=== PATIENT | female | born 1950 | race Caucasian/White ===

== ENCOUNTER 2017-10-21 20:43 | Emergency (ER) | payer MEDICARE, OTHER ==
[~2017-10-21] VITALS: Ht 165.1 cm; Wt 84.8 kg
[2017-10-21] MEDS ORDERED: ULTRAM PO STA (20:57)
[2017-10-21] MEDS ORDERED: ULTRAM ONE (20:59)
[2017-10-21] MEDS ORDERED: ZOFRAN ODT SL STA ×2 (21:03→21:07)
[2017-10-21] MEDS ORDERED: ZOFRAN ODT ONE (21:03)
--- NOTE | 2017-10-21 21:03 | ER.PDOC ---
General Chief Complaint: Extremities Stated Complaint: R SHOULDER PAIN Time seen by MD: 20:54 Source: patient, family Exam Limitations: no limitations History of Present Illness Initial Comments Reaching overhead. Bland pop, pain L shoulder. Occurred: just prior to arrival Recent Injury: Yes Where: home Severity: moderate Exacerbated By: movement of Relieved By: postioning Allergies: Coded Allergies: azithromycin (Verified Allergy, Unknown, 10/21/17) Past Medical History Medical History: cardiac problems, high cholesterol, heart attack, hypertension Surgical History: hysterectomy, shoulder LMP (females 10-50): hysterectomy Social History Smoking: non-smoker Alcohol Use: occassionally Drug Use: none Review of Systems Constitutional: no symptoms reported Musculoskeletal: see HPI All Other Systems: Reviewed and Negative Physical Exam General Appearance: alert, moderate distress Upper Extremity: tenderness (ant R shoulder. Pain with any attempt at ROM.) Skin: color nml, warm/dry Vascular: no vascular compromise Neuro/Psych: sensation nml, motor nml Neck/Back: nml inspection Joint Reduction Joint Reduction : Joint Reduction Site: shoulder (R) Conscious Sedation: Yes Reduction Attempts: 1 Pre-Procedure NV Exam: Yes Post-Procedure NV Exam: Yes Post Joint Reduction Film: joint reduced Progress Yuliana well. Placed in shoulder immob. Results/Orders Results/Orders Administered Medications Medications (Trade) Dose Ordered Sig/Flavia Route PRN Reason Start Time Stop Time Status Last Admin Dose Admin Tramadol HCl (Ultram) 50 mg STAT STAT PO 10/21/17 20:57 10/21/17 20:59 DC 10/21/17 21:05 Ondansetron HCl (Zofran Odt) 4 mg STAT STAT SL 10/21/17 21:07 10/21/17 21:08 DC 10/21/17 21:08 Fentanyl Citrate (Sublimaze) 50 mcg STAT STAT IV 10/21/17 21:45 10/21/17 21:47 DC 10/21/17 22:04 Midazolam HCl (Versed) 2 mg STAT STAT IV 10/21/17 21:45 10/21/17 21:47 DC 10/21/17 22:05 EKG/XRAY/CT/US XRAY Comments: Shoulder R ant disloc, no fx. Post reduction, degen changes, good reductio Departure Time of Disposition: 22:40 Disposition: 01 HOME, SELF-CARE Impression: Primary Impression: Anterior dislocation of right shoulder Condition: Improved Patient Instructions: Shoulder Dislocation Referrals: MAGUI BALLARD MD (PCP) PRIMARY CARE PROVIDER Additional Instructions: Ice. Sling as needed. See your doctor next week for recheck. Duration or Time Spent with Pa: 40 ROCHELLE DUKE DO Oct 21, 2017 21:03
[2017-10-21] MEDS ORDERED: VERSED IV STA (21:45)
[2017-10-21] MEDS ORDERED: SUBLIMAZE IV STA (21:45)
[2017-10-21] MEDS ORDERED: VERSED ONE (21:54)
[2017-10-21] MEDS ORDERED: SUBLIMAZE ONE (21:54)
--- NOTE | 2017-10-21 21:56 | DIREP ---
PROCEDURE:XRAY SHOULDER MIN 2 VWS-RT COMPARISON:None. INDICATIONS:injury FINDINGS: BONES:No visible fracture. JOINTS:Anterior/inferior right shoulder dislocation. No acromioclavicular separation. Mild acromioclavicular arthrosis. SOFT TISSUES:Unremarkable. OTHER:Visualized portions of the right lung are clear. Bra artifact overlies the chest and right shoulder. Calcified plaque is noted in the aortic arch. CONCLUSION: 1. Anterior/inferior right shoulder dislocation. No visible fracture. 2. Mild acromioclavicular arthrosis. Dictated by: Akira Cesar MD on 10/21/2017 at 09:54 PM
--- NOTE | 2017-10-21 22:02 | NUR ---
PROCEDURE JANETTE, YASMEEN PHAN, RN THEO, KATIE DUKE AT BEDSIDE FOR RIGHT SHOULDER REDUCTION, PLEASE SEE CONSCIOUS SEDATION FORM.
--- NOTE | 2017-10-21 22:40 | DIREP ---
PROCEDURE:XRAY SHOULDER 1 VW-RT COMPARISON:[facility], CR, XRAY SHOULDER MIN 2 VWS-RT, 10/21/2017, 08:55 PM. INDICATIONS:post red FINDINGS: BONES:No visible fracture. The examination is limited to a single view. JOINTS:Interval reduction of the previously seen right glenohumeral dislocation. The humeral head is now well seated upon the glenoid. Stable mild acromioclavicular arthrosis. SOFT TISSUES:Unremarkable. OTHER:Mild right basilar subsegmental atelectasis. Visualized portions the right lung are otherwise clear. Stable calcified plaque at the aortic knob. CONCLUSION: 1. Interval reduction of the previously seen right glenohumeral dislocation. The humeral head is well seated upon the glenoid. No visible fracture. 2. Stable mild acromioclavicular arthrosis. Dictated by: Akira Cesar MD on 10/21/2017 at 10:36 PM
--- NOTE | 2017-10-21 23:17 | NUR ---
BP BP 186/91, EDP NOTIFIED, STATES TO DISCHARGE PATIENT. DOESN'T WANT TO GIVEN ANYTHING BECAUSE EDP IS AFRAID THE MEDICATION WILL DROP BP TOO LOW.
[2017-10-21 23:18] VITALS: BP 183/91
--- NOTE | 2017-10-21 23:19 | NUR ---
IV DC'D TIP INTACT, NO BLEEDING
--- NOTE | 2017-10-21 23:30 | NUR ---
DISCHARGE PATIENT CA0X4 UPON DISCHARGE, PATIENT STATES HER PAIN IS 1/10 AND FEELS MUCH BETTER. PATIENT WHEELED OUT TO VEHICLE.
== END 2017-10-21 23:30 | disposition home or self-care (01) ==
LOC: ER 20:43
DX: S43.014A Anterior dislocation of right humerus, initial encounter (principal); I10 Essential (primary) hypertension; I25.2 Old myocardial infarction; E78.00 Pure hypercholesterolemia, unspecified; Z90.710 Acquired absence of both cervix and uterus; Z88.1 Allergy status to other antibiotic agents; X58.XXXA Exposure to other specified factors, initial encounter; Y93.89 Activity, other specified; Y92.098 Other place in other non-institutional residence as the place of occurrence of the external cause; Y99.8 Other external cause status
CPT/HCPCS: 23650; 73020; 73030; 99285; J2250; J3010; Q0162; 96374; 96375; 99284

== ENCOUNTER → 2018-03-09 | Outpatient (CLI) | payer MEDICARE, OTHER ==
--- NOTE | 2018-03-09 11:09 | DIREP ---
PROCEDURE:XRAY HIP MIN 2VW-LT COMPARISON:None. INDICATIONS:M25.552 PAIN IN LEFT HIP FINDINGS: BONES:Normal. JOINTS:Normal. SOFT TISSUES:Normal. OTHER:No additional findings. CONCLUSION:Normal left hip. Dictated by: Kody Lovell M.D. on 03/09/2018 at 11:07 AM
--- NOTE | 2018-03-09 11:11 | DIREP ---
PROCEDURE:XRAY SPINE LUMBAR 2-3 VWS COMPARISON:None. INDICATIONS:M54.5 LOW BACK PAIN FINDINGS: ALIGNMENT:Normal. VERTEBRAE:No fractures or destructive lesions. Minimal osteophyte formation anteriorly from L1 through L4. DISK SPACES:Normal. SPONDYLOLISTHESIS:None. SACROILIAC JOINTS:Normal. OTHER:Moderate arterial calcifications. CONCLUSION: 1. No abnormalities to explain the patient's back pain. 2. Atherosclerosis. Dictated by: Kody Lovell M.D. on 03/09/2018 at 11:09 AM
== END | disposition home or self-care (01) ==
LOC: RAD 09:26
PROVIDERS: ATTEND Internal Medicine
DX: M25.552 Pain in left hip (principal); M25.78 Osteophyte, vertebrae; I70.90 Unspecified atherosclerosis
CPT/HCPCS: 72100; 73502

== ENCOUNTER → 2018-07-26 | Outpatient (CLI) | payer MEDICARE, OTHER ==
[~2018-07-26] MED LIST: ASPI-667 PO; CITA20TA6 PO; CLOP75TA PO; ISOS30TA4 PO; LOSA100T14 PO; METO50TA6 PO; MULT1TAB52 PO; NIAC500C3 PO; POTA10CA PO; PRAV80TA PO; TRIA1TAB5 PO; VERA240C2 PO
== END | disposition home or self-care (01) ==
LOC: LAB 13:12
PROVIDERS: ATTEND Nurse Practitioner
DX: R35.0 Frequency of micturition (principal)
CPT/HCPCS: 87086

== ENCOUNTER → 2018-07-26 | Outpatient (CLI) | payer MEDICARE, OTHER ==
[2018-07-26 11:57] LABS: BASOPHIL % 0.3 % (0.0-0.2); EOSINOPHIL # 0.2 10^3/uL (0.0-0.2); EOSINOPHIL % 1.8 % (0.0-5.0); HEMOGLOBIN 13.1 g/dL (12.0-15.0); LYMPHOCYTES # 1.1 10^3/uL (1.0-4.8); LYMPHOCYTES % 9.2 % (24.0-44.0); MEAN CELL HGB 29.9 pg (26-34); MEAN CELL HGB CONCENTRATION 33.3 g/dL (33-37); MEAN CORP VOLUME 89.7 fL (78-100); MEAN PLATELET VOLUME 9.7 fL (7.8-11.0); MONOCYTES % 8.4 % (5.0-12.0); NEUTROPHIL # 9.4 10^3/uL (1.8-7.7); NEUTROPHILS % 78.9 % (41.0-85.0); PLATELET COUNT 340 10^3/uL (150-400); RED CELL DISTRIBUTION WIDTH 13.6 % (11.5-14.5); WHITE BLOOD CELL 11.9 10^3/uL (4.5-11.0)
[2018-07-26 12:16] LABS: CALCIUM 10.1 mg/dL (8.4-10.5); CARBON DIOXIDE 23.4 mmol/L (20.0-32)
[2018-07-26 13:50] LABS: BAND NEUTROPHILS 1 % (2-6); EOSINOPHIL 2 % (1-4); LYMPHOCYTE 11 % (25-36); MONOCYTE 10 % (3-9); SEGMENTED NEUTROPHILS 74 % (31-76)
== END | disposition home or self-care (01) ==
LOC: LAB 11:34
PROVIDERS: ATTEND Nurse Practitioner
DX: M79.81 Nontraumatic hematoma of soft tissue (principal); N17.9 Acute kidney failure, unspecified; R35.0 Frequency of micturition; I10 Essential (primary) hypertension; E78.00 Pure hypercholesterolemia, unspecified; M81.0 Age-related osteoporosis without current pathological fracture
CPT/HCPCS: 36415; 80053; 85025; 85610; 85730

== ENCOUNTER 2018-07-27 14:44 | Emergency (ER) | payer MEDICARE, OTHER ==
[~2018-07-27] VITALS: Ht 165.1 cm; Wt 85.7 kg
[2018-07-27 15:15] VITALS: BP 148/59
--- NOTE | 2018-07-27 15:15 | NUR ---
ARRIVAL PATIENT ARRIVED TO [facility] AMBULATORY, WAS SENT BY DOCTOR LAZARO FOR ELEVEATED CREATININE. PATIENT WAS SEEN YESTERDAY IN HIS OFFICE FOR NINFA, LABS WERE DONE, TODAY WAS SENT TO THE ED FOR FURTHER EVAL.
[2018-07-27] MEDS ORDERED: NS 1000ML 1,000 ML IV STA ×2 (15:23→18:08)
--- NOTE | 2018-07-27 15:23 | ER.PDOC ---
General Chief Complaint: General Complaint Stated Complaint: KIDNEY FAILURE TRAVEL OUT OF US: No Time seen by MD: 15:20 Source: patient Exam Limitations: no limitations History of Present Illness Initial Comments 68 Y/O F WITH HX TO ED WITH HX X 1 WEEK AGO HAD STOMACH BUG, WITH N/V/D, NOW BETTER, BUT SAW PCP TODAY NOTED CREAT WAS 5.45 PATIENT NOW HAS NO SYMPTOMS EXCEPT FREQUENCY WITH URINATION AND "MILD FATIGUE". NO CHEST PAIN, NO SOB, NO FEVER, NO EXT EDEMA. Severity: mild Allergies: Coded Allergies: azithromycin (Verified Allergy, Unknown, 10/21/17) Past Medical History Medical History: cardiac problems, high cholesterol, hypertension Surgical History: cardiac cath, hysterectomy, shoulder, tonsillectomy, other Social History Smoking: non-smoker Alcohol Use: none Drug Use: none Review of Systems Constitutional: no symptoms reported EENTM: no symptoms reported Respiratory: no symptoms reported Cardiovascular: no symptoms reported Gastrointestinal: no symptoms reported Genitourinary: dysuria, frequency Musculoskeletal: no symptoms reported Skin: no symptoms reported Psychiatric/Neurological: no symptoms reported Hematologic/Lymphatic: no symptoms reported Immunological/Allergic: no symptoms reported Physical Exam General Appearance: No Apparent Distress, WD/WN EENT: eyes nml inspection, nml ENT inspection, pharynx nml Neck: Non-Tender, Full Range of Motion, Supple Respiratory: chest non-tender, normal breath sounds CVS: reg rate & rhythm, no murmur, no gallop, pulses nml Gastrointestinal: Normal Bowel Sounds, No Organomegaly, No Pulsatile Mass, Non Tender Back: Normal Inspection, No CVA Tenderness, No Vertebral Tenderness Extremities: Normal Range of Motion, Non-Tender, Normal Inspection, No Pedal Edema Neurologic/Psychiatric: contact lens manufacturer II-XII NML as Tested, No Motor/Sensory Deficits, Alert, Normal Mood/Affect, Oriented x 3 Skin: Normal Color, Warm/Dry Lymphatic: No Adenopathy Comments PATIENT PLEASANT , IN NO DISTRESS. Results/Orders Results/Orders Orders - PEREZ GONSALVES DO Cbc With Auto Diff (07/27/18 15:23) Comprehensive Metabolic Panel (07/27/18 15:23) Creatine Kinase (07/27/18 15:23) Ekg-Routine (07/27/18 15:23) Saline Lock (07/27/18 15:23) 0.9 % Sodium Chloride (Ns 1000ml) (07/27/18 15:23) Urinalysis (07/27/18 15:23) 0.9 % Sodium Chloride (Ns 1000ml) (07/27/18 15:26) Urine Culture (07/27/18 15:49) Ceftriaxone Sodium (Rocephin) (07/27/18 18:08) 0.9 % Sodium Chloride (Ns 1000ml) (07/27/18 18:08) Vital Signs Date Time Temp Pulse Resp B/P (MAP) Pulse Ox O2 Delivery O2 Flow Rate FiO2 07/27/18 18:34 97.7 89 18 148/77 (100) 97 Room Air 97.7 07/27/18 15:15 97.7 89 18 148/59 (88) 97 Room Air 97.7 07/27/18 15:12 97.7 89 18 97 Room Air 97.7 07/27/18 15:10 97.7 89 18 97.7 Administered Medications Medications (Trade) Dose Ordered Sig/Flavia Route PRN Reason Start Time Stop Time Status Last Admin Dose Admin Sodium Chloride 1,000 ml @ 0 mls/hr Q0M STAT IV 07/27/18 15:23 07/27/18 15:26 DC 07/27/18 15:59 1,200 MLS/HR Laboratory Tests Test 07/27/18 15:49 07/27/18 17:22 Urine Collection Type VOID Urine Color YELLOW (YELLOW) Urine Appearance CLOUDY (CLEAR) H Urine Bilirubin NEGATIVE MG/DL (NEGATIVE) Urine Ketones NEGATIVE (NEGATIVE) Urine Specific [place] 1.010 (1.005-1.035) Urine pH 6.5 (5.0-6.0) Urine Protein NEGATIVE (NEGATIVE) Urine Urobilinogen NORMAL (NEGATIVE) Urine Nitrate NEGATIVE (NEGATIVE) Urine Leukocyte Esterase 500/uL 2+ (NEGATIVE) Urine Blood 25 1+ (NEGATIVE) H Urine RBC 2-5 RBC/HPF (NONE SEEN) Urine WBC TNTC WBC/HPF (0-2) H Urine Squamous Epithelial Cells FEW #/HPF (FEW) Urine Bacteria MANY (NONE SEEN) H Urine Glucose NORMAL (NEGATIVE) White Blood Count 11.4 10^3/uL (4.5-11.0) H Red Blood Count 4.17 10^6/uL (4.00-5.20) Hemoglobin 12.6 g/dL (12.0-15.0) Hematocrit 37.3 % (36.0-46.0) Mean Corpuscular Volume 89.4 fL (78-100) Mean Corpuscular Hemoglobin 30.2 pg (26-34) Mean Corpuscular Hemoglobin Concent 33.8 g/dL (33-37) Red Cell Distribution Width 13.6 % (11.5-14.5) Platelet Count 332 10^3/uL (150-400) Mean Platelet Volume 9.2 fL (7.8-11.0) Neutrophils (%) (Auto) 77.7 % (41.0-85.0) Lymphocytes (%) (Auto) 10.1 % (24.0-44.0) L Monocytes (%) (Auto) 8.2 % (5.0-12.0) Neutrophils # (Auto) 8.9 10^3/uL (1.8-7.7) H Lymphocytes # (Auto) 1.2 10^3/uL (1.0-4.8) Monocytes # (Auto) 0.9 10^3/uL (0.3-0.8) H Absolute Immature Granulocyte (auto 0.16 10^3 u/L (0-2) Eosinophils % 2.3 % (0.0-5.0) Basophils % 0.3 % (0.0-0.2) H Basophils # 0.0 10^3/uL (0.0-0.1) Eosinophil Count 0.3 10^3/uL (0.0-0.2) H Sodium Level 134 mmol/L (132-145) Potassium Level 5.4 mmol/L (3.6-5.2) H Chloride Level 102.0 mmol/L (96-109) Carbon Dioxide Level 19.9 mmol/L (20.0-32) L Anion Gap 17.5 Blood Urea Nitrogen 47 mg/dL (7-18) H Creatinine 4.63 mg/dL (0.59-1.40) *H Estimated GFR () 11.3 (>/=60) BUN/Creatinine Ratio 10.0 Glucose Level 94 mg/dL (70-110) Calcium Level 9.4 mg/dL (8.4-10.5) Total Bilirubin 0.6 mg/dL (0.2-1.0) Aspartate Amino Transferase (AST) 23 U/L (0-35) Alanine Aminotransferase (ALT) 39 U/L (12-78) Alkaline Phosphatase 121 U/L (50-136) Total Creatine Kinase 35 U/L (26-192) Total Protein 7.5 g/dL (6.4-8.2) Albumin 3.4 g/dL (3.4-5.0) Globulin 4.1 Percent Immature Gran (Cell Imm) 1.40 % (0.00-0.50) H Progress Progress DIFF DX IN DETAIL WITH PATIENT, WILL TRANSFER TO [facility] AT PATIENTS REQUEST. EKG/XRAY/CT/US EKG: NSR EKG Comments: EKG NSR RATE-78 , NL EKG Consult/PCP Time Consult/PCP Called: 18:30 Consult/PCP: DR MORALES Reason/Comments: SEND TO [facility] Departure Time of Disposition: 18:52 Disposition: 70 DISC/XFER TO [facility] Impression: Primary Impression: Renal insufficiency Additional Impressions: UTI (urinary tract infection) Hyperkalemia HTN (hypertension) Condition: Stable Referrals: BOZENA LAZARO MD (PCP) PRIMARY CARE PROVIDER Duration or Time Spent with Pa: 30 MIN PEREZ GONSALVES DO July 27, 2018 15:23
[2018-07-27] MEDS ORDERED: NS 1000ML 1,000 ML ONE ×2 (15:26→19:58)
--- NOTE | 2018-07-27 15:52 | PCM.EKG ---
[facility] Test Date: 2018-07-27 Test Time: 15:52:15 Pat Name: DARRIUS TORRES Department: Room: Gender: F Flame Hardener: : 1950 Requested By: PEREZ GONSALVES Order Number: [id number] Reading MD: Measurements Intervals [place] Rate: 78 P: 75 ME: 160 QRS: 69 QRSD: 94 T: 109 QT: 406 QTc: 462 Interpretive Statements Normal sinus rhythm Normal ECG No previous ECG available for comparison Please click the below link to view image of tracing.
[2018-07-27 15:58] LABS: BILIRUBIN,URINE NEGATIVE (NEGATIVE); UROBILINOGEN,URINE NORMAL (NEGATIVE)
[2018-07-27 16:13] LABS: APPEARANCE,URINE CLOUDY (CLEAR); UA COLOR YELLOW (YELLOW)
[2018-07-27 17:27] LABS: BASOPHIL % 0.3 % (0.0-0.2); EOSINOPHIL # 0.3 10^3/uL (0.0-0.2); EOSINOPHIL % 2.3 % (0.0-5.0); HEMOGLOBIN 12.6 g/dL (12.0-15.0); LYMPHOCYTES # 1.2 10^3/uL (1.0-4.8); LYMPHOCYTES % 10.1 % (24.0-44.0); MEAN CELL HGB 30.2 pg (26-34); MEAN CELL HGB CONCENTRATION 33.8 g/dL (33-37); MEAN CORP VOLUME 89.4 fL (78-100); MEAN PLATELET VOLUME 9.2 fL (7.8-11.0); MONOCYTES # 0.9 10^3/uL (0.3-0.8); MONOCYTES % 8.2 % (5.0-12.0); NEUTROPHIL # 8.9 10^3/uL (1.8-7.7); NEUTROPHILS % 77.7 % (41.0-85.0); RED CELL DISTRIBUTION WIDTH 13.6 % (11.5-14.5); WHITE BLOOD CELL 11.4 10^3/uL (4.5-11.0)
[2018-07-27 17:47] LABS: CALCIUM 9.4 mg/dL (8.4-10.5); CARBON DIOXIDE 19.9 mmol/L (20.0-32)
[2018-07-27] MEDS ORDERED: ROCEPHIN 1,000 MG in NS 100ML 100 ML IV STA (18:08)
[2018-07-27 18:34] VITALS: BP 148/77
--- NOTE | 2018-07-27 18:34 | NUR ---
ANDREW GONSALVES ON THE PHONE PORTILLO MORALES AT THIS TIME.
[2018-07-27] MEDS ORDERED: MULT1TAB52 PO (19:04)
[2018-07-27] MEDS ORDERED: POTA10CA PO (19:04)
[2018-07-27] MEDS ORDERED: VERA240C2 PO (19:04)
[2018-07-27] MEDS ORDERED: LOSA100T14 PO (19:04)
[2018-07-27] MEDS ORDERED: ISOS30TA4 PO (19:04)
[2018-07-27] MEDS ORDERED: PRAV80TA PO (19:04)
[2018-07-27] MEDS ORDERED: ASPI-667 PO (19:04)
[2018-07-27] MEDS ORDERED: CLOP75TA PO (19:04)
[2018-07-27] MEDS ORDERED: METO50TA6 PO (19:04)
[2018-07-27] MEDS ORDERED: NIAC500C3 PO (19:04)
[2018-07-27] MEDS ORDERED: CITA20TA6 PO (19:04)
[2018-07-27] MEDS ORDERED: TRIA1TAB5 PO (19:04)
[2018-07-27 19:57] VITALS: BP 156/69
[2018-07-27] MEDS ORDERED: ROCEPHIN ONE (19:58)
[2018-07-27] MEDS ORDERED: NS 100ML 100 ML IV ONE (19:58)
--- NOTE | 2018-07-27 20:11 | NUR ---
[facility] Called to see if [facility] could take transfer due to [facility] having 2 transfers to [place]. Basic EMT states that she will have her medic call us back.
--- NOTE | 2018-07-27 20:16 | NUR ---
[facility] called to notify us that they will be willing to take transfer to [facility]
[2018-07-27 21:05] VITALS: BP 188/104
[2018-07-27 21:46] VITALS: BP 188/104
--- NOTE | 2018-07-27 21:51 | NUR ---
REPORT REPORT GIVEN TO JACKIE AT [facility] ER
== END 2018-07-27 21:12 | disposition other institution (70) ==
LOC: ER 14:44
DX: E78.00 Pure hypercholesterolemia, unspecified (principal); I10 Essential (primary) hypertension; E87.5 Hyperkalemia; N28.9 Disorder of kidney and ureter, unspecified; N39.0 Urinary tract infection, site not specified; Z88.1 Allergy status to other antibiotic agents; Z90.710 Acquired absence of both cervix and uterus
CPT/HCPCS: 36415; 80053; 81000; 82550; 85025; 87086; 93005; 96365; 99285; J0696; J7030 ×2; J7050

== ENCOUNTER → 2018-08-02 | Outpatient (CLI) | payer MEDICARE, OTHER ==
[2018-08-02 11:45] LABS: HEMOGLOBIN 11.8 g/dL (12.0-15.0); MEAN CELL HGB 30.3 pg (26-34); MEAN CELL HGB CONCENTRATION 33.2 g/dL (33-37); MEAN PLATELET VOLUME 8.9 fL (7.8-11.0); RED CELL DISTRIBUTION WIDTH 13.5 % (11.5-14.5); WHITE BLOOD CELL 12.5 10^3/uL (4.5-11.0)
[2018-08-02 11:55] LABS: CALCIUM 9.3 mg/dL (8.4-10.5); CARBON DIOXIDE 28.6 mmol/L (20.0-32)
== END | disposition home or self-care (01) ==
LOC: LAB 11:25
PROVIDERS: ATTEND Internal Medicine
DX: N17.9 Acute kidney failure, unspecified (principal)
CPT/HCPCS: 36415; 80048; 85027

== ENCOUNTER 2018-08-08 13:54 | Emergency (ER) | payer MEDICARE, OTHER ==
[~2018-08-08] VITALS: Ht 165.1 cm; Wt 81.6 kg
[2018-08-08 14:14] VITALS: BP 125/63
--- NOTE | 2018-08-08 14:37 | PCM.EKG ---
[facility] Test Date: 2018-08-08 Test Time: 14:09:38 Pat Name: DARRIUS TORRES Department: Room: Gender: F Liquid Loader: : 1950 Requested By: MONROE DUQUE Order Number: [id number] Reading MD: Monroe DUQUE Measurements Intervals [place] Rate: 85 P: 69 MI: 144 QRS: 28 QRSD: 84 T: 192 QT: 374 QTc: 445 Interpretive Statements Normal sinus rhythm Inferior infarct, age undetermined Abnormal ECG Compared to ECG 07/27/2018 15:52:15 Myocardial infarct finding now present Electronically Signed On 08-08-2018 18:51:51 CDT by Monroe DUQUE Please click the below link to view image of tracing.
--- NOTE | 2018-08-08 14:43 | ER.PDOC ---
General Chief Complaint: Dyspnea/Respdistress Stated Complaint: SHORTNESS OF BREATH,BACK PAIN Time seen by MD: 14:36 Source: patient Exam Limitations: no limitations History of Present Illness Initial Comments Difficulty breathing since yesterday. Discharged from the Hospital 10 days ago. She also has left lower back pain from turning wrongly while in the Hospital. Severity: moderate Prior Episodes/Possible Cause: no prior episodes Associated Symptoms: denies symptoms Prior symptoms/Treatment: Recenly Seen, Treated by Doctor, Recently Hospitalized Allergies: Coded Allergies: azithromycin (Verified Allergy, Unknown, 10/21/17) Home Meds Reported Medications Aspirin (ASPIRIN) 81 Mg Tab.chew, 1 TAB PO DAILY, #30 TAB 3 Refills 07/27/18 Multivitamin (MULTIVITAMINS) 1 Each Tablet, 1 TAB PO DAILY, #90 TAB 3 Refills 07/27/18 Losartan Potassium (LOSARTAN POTASSIUM) 100 Mg Tablet, 1 TAB PO DAILY, #30 TAB 5 Refills 07/27/18 Citalopram Hydrobromide (CITALOPRAM HBR) 20 Mg Tablet, 1 TAB PO DAILY, #30 TAB 5 Refills 07/27/18 Clopidogrel Bisulfate (CLOPIDOGREL) 75 Mg Tablet, 1 TAB PO DAILY, #90 TAB 1 Refill 07/27/18 Triamterene/Hydrochlorothiazid (TRIAMTERENE-HCTZ 75-50 MG TAB) 1 Each Tablet, 1 TAB PO DAILY, #30 TAB 5 Refills 07/27/18 Verapamil Hcl (VERAPAMIL ER) 240 Mg Cap24h.pel, 80 MG PO BID 07/27/18 Isosorbide Mononitrate (ISOSORBIDE MONONITRATE ER) 30 Mg Tab.er.24h, 1 TAB PO BID, #30 TAB 5 Refills 07/27/18 Potassium Chloride (POTASSIUM CHLORIDE) 10 Meq Capsule.er, 1 CAP PO DAILY, #90 CAP 1 Refill 07/27/18 Pravastatin Sodium (PRAVACHOL) 80 Mg Tablet, 1 TAB PO DAILY, #30 TAB 5 Refills 07/27/18 Niacin (NIACIN) 500 Mg Capsule.er, 500 MG PO DAILY24 07/27/18 Metoprolol Tartrate 50MG (LOPRESSER 50MG) 50 Mg Tablet, 1 TAB PO DAILY24, #60 TAB 5 Refills 07/27/18 Past Medical History Medical History: coronary artery disease, high cholesterol, heart attack, renal disease Surgical History: cardiac cath, cancer surgery, hysterectomy, shoulder Social History Smoking: non-smoker Alcohol Use: none Drug Use: none Review of Systems Constitutional: no symptoms reported EENTM: no symptoms reported Respiratory: see HPI Cardiovascular: no symptoms reported Musculoskeletal: see HPI All Other Systems: Reviewed and Negative Physical Exam General Appearance: No Apparent Distress, WD/WN Neck: Non-Tender, Full Range of Motion, Supple, Normal Inspection Respiratory: chest non-tender, lungs clear, normal breath sounds, no respiratory distress, no accessory muscle use Cardiovascular: Normal Peripheral Pulses, Regular Rate, Rhythm, No Edema, No Gallop, No JVD, No Murmur Gastrointestinal: Normal Bowel Sounds, No Organomegaly, No Pulsatile Mass, Non Tender, Soft Extremities: Normal Range of Motion, Non-Tender, Normal Inspection, No Pedal Edema, No Calf Tenderness, Normal Capillary Refill Neurologic/Psychiatric: siebel architect II-XII NML as Tested, No Motor/Sensory Deficits, Alert, Normal Mood/Affect, Oriented x 3 Skin: Normal Color Comments tenderness left paraspinous muscles of L spine Results/Orders Results/Orders Orders - MONROE DUQUE MD Cbc With Auto Diff (08/08/18 14:34) Comprehensive Metabolic Panel (08/08/18 14:34) Creatine Kinase (08/08/18 14:34) Troponin I (08/08/18 14:34) Probnp B-Type Elementary Esl Teacher (08/08/18 14:34) PT (08/08/18 14:34) Partial Thromboplastin Time. (08/08/18 14:34) D-Dimer (08/08/18 14:34) Xr Chest 1v (08/08/18 14:34) Ekg-Routine (08/08/18 14:34) Cta Chest (08/08/18 16:02) Acetaminophen (Tylenol) (08/08/18 16:43) Acetaminophen (Tylenol) (08/08/18 17:10) Vital Signs Date Time Temp Pulse Resp B/P (MAP) Pulse Ox O2 Delivery O2 Flow Rate FiO2 08/08/18 15:22 83 16 122/71 (88) 94 Room Air 08/08/18 14:14 98.4 84 16 125/63 (83) 98 Room Air 98.4 08/08/18 14:03 98.4 84 16 98.4 08/08/18 14:03 98.4 84 14 98 Room Air 98.4 07/27/18 21:46 87 Administered Medications Medications (Trade) Dose Ordered Sig/Flavia Route PRN Reason Start Time Stop Time Status Last Admin Dose Admin Acetaminophen (Tylenol) 1,000 mg STAT STAT PO 08/08/18 16:43 08/08/18 16:44 DC 08/08/18 17:19 1,000 MG Laboratory Tests Test 08/08/18 14:46 08/08/18 14:54 White Blood Count 8.4 10^3/uL (4.5-11.0) Red Blood Count 3.53 10^6/uL (4.00-5.20) L Hemoglobin 10.7 g/dL (12.0-15.0) L Hematocrit 32.1 % (36.0-46.0) L Mean Corpuscular Volume 90.9 fL (78-100) Mean Corpuscular Hemoglobin 30.3 pg (26-34) Mean Corpuscular Hemoglobin Concent 33.3 g/dL (33-37) Red Cell Distribution Width 13.8 % (11.5-14.5) Platelet Count 346 10^3/uL (150-400) Mean Platelet Volume 9.9 fL (7.8-11.0) Neutrophils (%) (Auto) 64.3 % (41.0-85.0) Lymphocytes (%) (Auto) 14.1 % (24.0-44.0) L Monocytes (%) (Auto) 17.2 % (5.0-12.0) H Neutrophils # (Auto) 5.4 10^3/uL (1.8-7.7) Lymphocytes # (Auto) 1.2 10^3/uL (1.0-4.8) Monocytes # (Auto) 1.5 10^3/uL (0.3-0.8) H Absolute Immature Granulocyte (auto 0.02 10^3 u/L (0-2) Immature Granulocytes % 0.20 % (0.00-0.50) Eosinophils % 3.6 % (0.0-5.0) Basophils % 0.6 % (0.0-0.2) H Basophils # 0.1 10^3/uL (0.0-0.1) Eosinophil Count 0.3 10^3/uL (0.0-0.2) H Prothrombin Time 11.0 SEC (9.8-11.9) Prothrombin Time INR (Non-Therap) 1.1 PTT 25.2 SEC (24.67-30.72) D-Dimer 3.65 mg/L (0.19-0.49) *H Sodium Level 134 mmol/L (132-145) Potassium Level 3.8 mmol/L (3.6-5.2) Chloride Level 98.0 mmol/L (96-109) Carbon Dioxide Level 24.2 mmol/L (20.0-32) Anion Gap 15.6 Blood Urea Nitrogen 21 mg/dL (7-18) H Creatinine 1.32 mg/dL (0.59-1.40) Estimated GFR () 48.1 (>/=60) BUN/Creatinine Ratio 15.0 Glucose Level 129 mg/dL (70-110) H Calcium Level 9.3 mg/dL (8.4-10.5) Total Bilirubin 0.6 mg/dL (0.2-1.0) Aspartate Amino Transferase (AST) 49 U/L (0-35) H Alanine Aminotransferase (ALT) 56 U/L (12-78) Alkaline Phosphatase 169 U/L (50-136) H Total Creatine Kinase 26 U/L (26-192) Troponin I < 0.02 ng/mL (0.00-0.05) Pro-B-Type Natriuretic Peptide 1587 pg/mL (0-125) H Total Protein 7.0 g/dL (6.4-8.2) Albumin 3.3 g/dL (3.4-5.0) L Globulin 3.7 Differential Total Cells Counted 100 #CELLS Segmented Neutrophils 68 % (31-76) Lymphocytes 14 % (25-36) L Monocytes 16 % (3-9) H Absolute Eosinophils (Manual) 2 % (1-4) Differential Comment NORMAL Platelet Estimate ADEQUATE Platelet Morphology NORMAL Blood Morphology Comment NORMAL MORPHOLOGY Progress Progress CTA chest: No pulmonary embolism identified. 2. Moderate pericardial effusion. 3. Mediastinal and hilar adenopathy. 4. Small right pleural fluid. 5. Nodular scarring anteriorly at the left upper lobe. Consider follow-up CT chest in 3-[address] Strong geographic information systems engineer for Dr. Matthews and he wants me transfer patient to [facility] ED. Course Sepsis Screening Results: Posi: POSITIVE SEPSIS RISK Duration or Total Time Spent w: 30 MIN Vitals & review Data Vital Sign - Last 24 Hours 07/27/18 08/08/18 08/08/18 08/08/18 21:46 14:03 14:03 14:14 Temp 98.4 98.4 98.4 98.4 98.4 98.4 Pulse 87 84 84 84 Resp 14 16 16 B/P (MAP) 125/63 (83) Pulse Ox 98 98 O2 Delivery Room Air Room Air 08/08/18 15:22 Pulse 83 Resp 16 B/P (MAP) 122/71 (88) Pulse Ox 94 O2 Delivery Room Air Laboratory Tests Test 08/08/18 14:46 08/08/18 14:54 White Blood Count 8.4 10^3/uL Red Blood Count 3.53 10^6/uL Hemoglobin 10.7 g/dL Hematocrit 32.1 % Mean Corpuscular Volume 90.9 fL Mean Corpuscular Hemoglobin 30.3 pg Mean Corpuscular Hemoglobin Concent 33.3 g/dL Red Cell Distribution Width 13.8 % Platelet Count 346 10^3/uL Mean Platelet Volume 9.9 fL Neutrophils (%) (Auto) 64.3 % Lymphocytes (%) (Auto) 14.1 % Monocytes (%) (Auto) 17.2 % Neutrophils # (Auto) 5.4 10^3/uL Lymphocytes # (Auto) 1.2 10^3/uL Monocytes # (Auto) 1.5 10^3/uL Absolute Immature Granulocyte (auto 0.02 10^3 u/L Immature Granulocytes % 0.20 % Eosinophils % 3.6 % Basophils % 0.6 % Basophils # 0.1 10^3/uL Eosinophil Count 0.3 10^3/uL Prothrombin Time 11.0 SEC Prothrombin Time INR (Non-Therap) 1.1 Activated Partial Thromboplast Time 25.2 SEC D-Dimer 3.65 mg/L Sodium Level 134 mmol/L Potassium Level 3.8 mmol/L Chloride Level 98.0 mmol/L Carbon Dioxide Level 24.2 mmol/L Anion Gap 15.6 Blood Urea Nitrogen 21 mg/dL Creatinine 1.32 mg/dL Estimated GFR () 48.1 BUN/Creatinine Ratio 15.0 Glucose Level 129 mg/dL Calcium Level 9.3 mg/dL Total Bilirubin 0.6 mg/dL Aspartate Amino Transf (AST/SGOT) 49 U/L Alanine Aminotransferase (ALT/SGPT) 56 U/L Alkaline Phosphatase 169 U/L Total Creatine Kinase 26 U/L Troponin I < 0.02 ng/mL Pro-B-Type Natriuretic Peptide 1587 pg/mL Total Protein 7.0 g/dL Albumin 3.3 g/dL Globulin 3.7 Differential Total Cells Counted 100 #CELLS Segmented Neutrophils 68 % Lymphocytes 14 % Monocytes 16 % Absolute Eosinophils (Manual) 2 % Differential Comment NORMAL Platelet Estimate ADEQUATE Platelet Morphology NORMAL Blood Morphology Comment NORMAL MORPHOLOGY Sepsis Infection Criteria Pres: None O2 Sat by Pulse Oximetry: 98 Departure Time of Disposition: 18:14 Disposition: 02 XFER [facility]-TRM HOSP Impression: Primary Impression: Pericardial effusion Condition: Stable Referrals: BOZENA LAZARO MD (PCP) PRIMARY CARE PROVIDER Comments Transfer to [facility] ED for Dr. Galindo. Duration or Time Spent with Pa: 2 hours Critical Care Note Total Time (mins): 120 MONROE DUQUE MD August 08, 2018 14:43
[2018-08-08 14:51] LABS: BASOPHIL # 0.1 10^3/uL (0.0-0.1); BASOPHIL % 0.6 % (0.0-0.2); EOSINOPHIL # 0.3 10^3/uL (0.0-0.2); EOSINOPHIL % 3.6 % (0.0-5.0); HEMOGLOBIN 10.7 g/dL (12.0-15.0); LYMPHOCYTES # 1.2 10^3/uL (1.0-4.8); LYMPHOCYTES % 14.1 % (24.0-44.0); MEAN CELL HGB 30.3 pg (26-34); MEAN CELL HGB CONCENTRATION 33.3 g/dL (33-37); MEAN CORP VOLUME 90.9 fL (78-100); MEAN PLATELET VOLUME 9.9 fL (7.8-11.0); MONOCYTES # 1.5 10^3/uL (0.3-0.8); MONOCYTES % 17.2 % (5.0-12.0); NEUTROPHIL # 5.4 10^3/uL (1.8-7.7); NEUTROPHILS % 64.3 % (41.0-85.0); RED CELL DISTRIBUTION WIDTH 13.8 % (11.5-14.5); WHITE BLOOD CELL 8.4 10^3/uL (4.5-11.0)
--- NOTE | 2018-08-08 14:59 | DIREP ---
PROCEDURE:CHEST 1 VIEW COMPARISON:None. INDICATIONS:SOB FINDINGS: LUNGS/PLEURA:No focal consolidation, pleural effusion or pneumothorax. VASCULATURE:Normal. Unremarkable pulmonary vasculature. CARDIAC:Mild cardiomegaly. MEDIASTINUM:Aortic knob calcifications. BONES:Suspect previous right rib fractures. OTHER:Negative. CONCLUSION: 1. No active cardiopulmonary process demonstrated. 2. Mild cardiomegaly. Dictated by: Jack Wiley M.D. on 08/08/2018 at 02:57 PM
[2018-08-08 15:17] LABS: ALANINE AMINOTRANSFERASE(ML) 56 U/L (12-78); ALKALINE PHOSPHATASE 169 U/L (50-136); ASPARTATE AMINO TRANSFERASE 49 U/L (0-35); CALCIUM 9.3 mg/dL (8.4-10.5); CARBON DIOXIDE 24.2 mmol/L (20.0-32); GLUCOSE 129 mg/dL (70-110)
[2018-08-08 15:22] VITALS: BP 122/71
--- NOTE | 2018-08-08 15:53 | NUR ---
CRITICAL LAB NOTIFIED DR DUQUE OF CRITICAL LAB VALUE AT THIS TIME.
[2018-08-08 16:36] LABS: DIFFERENTIAL COMMENT NORMAL; EOSINOPHIL 2 % (1-4); LYMPHOCYTE 14 % (25-36); MONOCYTE 16 % (3-9); SEGMENTED NEUTROPHILS 68 % (31-76)
[2018-08-08] MEDS ORDERED: TYLENOL PO STA (16:43)
[2018-08-08] MEDS ORDERED: TYLENOL PO ONE (17:10)
--- NOTE | 2018-08-08 17:19 | DIREP ---
PROCEDURE:CTA CHEST COMPARISON:None. INDICATIONS:Difficulty breathing TECHNIQUE:Post contrast axial images through the chest with multiplanar MIP/3D reconstructions. FINDINGS: PULMONARY ARTERIES:Patent. LUNGS:Mild dependent atelectasis. There is a mildly nodular scar anteriorly in the left upper lobe measuring up to 1 cm. The this finding is shown on axial image 70. Small atelectasis in the lingula and left lower lobe. CARDIAC:Normal size heart. Moderate pericardial effusion measuring 0.9 cm in thickness anterior to the apex and up to 1.5 cm posteriorly. RV:LV ratio (norm <0.9): Not applicable in the absence of pulmonary embolism. THYROID:Left thyroid nodule measuring 2.1 cm. Recommend outpatient correlation with ultrasound if not already done. THORACIC AORTA:Calcified atherosclerotic disease. No aneurysm. No dissection. MEDIASTINUM:Enlarged 2R lymph nodes measuring up to 1.2 cm to 1.3 cm near the thoracic inlet. Enlarged for are lymph node measuring 2.5 cm short axis. Enlarged conglomerate james masses in the right and left hilar regions measuring 2.3 and 2.4 cm short axis respectively. There is a right hilar node measuring 2.5 cm. There a few prevascular lymph nodes measuring up to 1.5 cm. Shotty paraesophageal lymph node measuring 0.6 cm short axis, not technically enlarged. PLEURA:Small right pleural fluid. BONES:Normal. OTHER:No additional findings. CONCLUSION: 1. No pulmonary embolism identified. 2. Moderate pericardial effusion. 3. Mediastinal and hilar adenopathy. 4. Small right pleural fluid. 5. Nodular scarring anteriorly at the left upper lobe. Consider follow-up CT chest in 3-6 months. Dictated by: Natasha Alfaro MD on 08/08/2018 at 05:09 PM
--- NOTE | 2018-08-08 17:57 | NUR ---
ALEKSANDAR MARYA ON PHONE WITH DR HUERTAS AT THIS TIME REGARDING PT.
--- NOTE | 2018-08-08 18:08 | NUR ---
ULISES FLORES MBA ON PHONE WITH [facility] TRANSFER LINE AT THIS TIME.
[2018-08-08 18:30] VITALS: BP 137/93
--- NOTE | 2018-08-08 18:40 | NUR ---
[facility] REPORT CALLED AND GIVEN TO VIJAYA IN ED.
--- NOTE | 2018-08-08 19:00 | NUR ---
TRANSFER EMS ARRIVED TO TRANSPORT TO [facility]. REPORT GIVEN RELINQUISHED CARE.
[2018-08-08 19:06] VITALS: BP 137/93
== END 2018-08-08 19:00 | disposition short-term general hospital (02) ==
LOC: ER 13:54
DX: I31.3 Pericardial effusion (noninflammatory) (principal); I25.10 Atherosclerotic heart disease of native coronary artery without angina pectoris; E78.00 Pure hypercholesterolemia, unspecified; Z79.82 Long term (current) use of aspirin; I25.2 Old myocardial infarction; Z79.899 Other long term (current) drug therapy; Z88.1 Allergy status to other antibiotic agents; Z90.710 Acquired absence of both cervix and uterus
CPT/HCPCS: 36415; 71045; 71275; 80053; 82550; 83880; 84484; 85025; 85379; 85610; 85730; 93005; 99291; 99292 ×2; Q9965; 99285

== ENCOUNTER 2019-01-07 08:28 | Emergency (ER) | payer MEDICARE, OTHER ==
[~2019-01-07] VITALS: Ht 165.1 cm; Wt 80.4 kg
[2019-01-07 08:30] VITALS: BP 140/71
--- NOTE | 2019-01-07 09:02 | ER.PDOC ---
General Chief Complaint: Nausea,Vomiting,Diarrhea Stated Complaint: N/V/D, FEVER Time seen by MD: 09:00 Source: patient Exam Limitations: no limitations History of Present Illness Initial Comments ON CHEMO FOR LUNG CA Severity/Quality: mild Associated Symptoms (vomiting): mild vomiting Associated Symptoms (diarrhea): watery Allergies: Coded Allergies: azithromycin (Verified Allergy, Unknown, 10/21/17) Home Meds Reported Medications Aspirin (ASPIRIN) 81 Mg Tab.chew, 1 TAB PO DAILY, #30 TAB 3 Refills 07/27/18 Multivitamin (MULTIVITAMINS) 1 Each Tablet, 1 TAB PO DAILY, #90 TAB 3 Refills 07/27/18 Losartan Potassium (LOSARTAN POTASSIUM) 100 Mg Tablet, 1 TAB PO DAILY, #30 TAB 5 Refills 07/27/18 Citalopram Hydrobromide (CITALOPRAM HBR) 20 Mg Tablet, 1 TAB PO DAILY, #30 TAB 5 Refills 07/27/18 Clopidogrel Bisulfate (CLOPIDOGREL) 75 Mg Tablet, 1 TAB PO DAILY, #90 TAB 1 Refill 07/27/18 Triamterene/Hydrochlorothiazid (TRIAMTERENE-HCTZ 75-50 MG TAB) 1 Each Tablet, 1 TAB PO DAILY, #30 TAB 5 Refills 07/27/18 Verapamil Hcl (VERAPAMIL ER) 240 Mg Cap24h.pel, 80 MG PO BID 07/27/18 Isosorbide Mononitrate (ISOSORBIDE MONONITRATE ER) 30 Mg Tab.er.24h, 1 TAB PO BID, #30 TAB 5 Refills 07/27/18 Potassium Chloride (POTASSIUM CHLORIDE) 10 Meq Capsule.er, 1 CAP PO DAILY, #90 CAP 1 Refill 07/27/18 Pravastatin Sodium (PRAVACHOL) 80 Mg Tablet, 1 TAB PO DAILY, #30 TAB 5 Refills 07/27/18 Niacin (NIACIN) 500 Mg Capsule.er, 500 MG PO DAILY24 07/27/18 Metoprolol Tartrate 50MG (LOPRESSER 50MG) 50 Mg Tablet, 1 TAB PO DAILY24, #60 TAB 5 Refills 07/27/18 Vital Signs First Vital Signs Date Time Temp Pulse Resp B/P (MAP) Pulse Ox O2 Delivery O2 Flow Rate FiO2 01/07/19 08:30 98.4 104 18 140/71 (94) 92 Room Air Last Vital Signs Date Time Temp Pulse Resp B/P (MAP) Pulse Ox O2 Delivery O2 Flow Rate FiO2 01/07/19 12:30 94 18 165/78 (107) 95 Room Air 01/07/19 08:30 98.4 Past Medical History Medical History: cancer, high cholesterol, heart attack, hypertension Surgical History: cardiac cath, hysterectomy, shoulder, tonsillectomy LMP (females 10-50): hysterectomy Social History Smoking: non-smoker Alcohol Use: none Drug Use: none Reviewed Nursing Reviewed: Vital Signs, Abn. Noted All Other Systems: Reviewed and Negative Physical Exam General Appearance: No Apparent Distress, WD/WN HEENT: PERRL/EOMI, Normal ENT Inspection, TMs Normal, Pharynx Normal Neck: Non-Tender, Full Range of Motion, Supple, Normal Inspection Respiratory: chest non-tender, lungs clear, normal breath sounds, no respiratory distress, no accessory muscle use Cardiovascular: Normal Peripheral Pulses, Regular Rate, Rhythm, No Edema, No Gallop, No JVD, No Murmur Gastrointestinal: Tenderness (RLQ , MILD) Back: Normal Inspection, No CVA Tenderness, No Vertebral Tenderness Extremities: Normal Range of Motion, Non-Tender, Normal Inspection, No Pedal Edema, No Calf Tenderness, Normal Capillary Refill, Pelvis Stable 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 as Tested, No Motor/Sensory Deficits, Alert, Normal Mood/Affect, Oriented x 3 Skin: Normal Color, Warm/Dry Lymphatic: No Adenopathy Results/Orders Results/Orders Orders - MARIA LUZ MARTINEZ MD Cbc With Auto Diff (01/07/19 08:56) Comprehensive Metabolic Panel (01/07/19 08:56) Amylase (01/07/19 08:56) Lipase (01/07/19 08:56) Urinalysis (01/07/19 08:56) Clostridium Difficile Panel (01/07/19 08:56) Lactoferrin Fecal Qual(Ml) (01/07/19 08:56) Stool Culture(Ml) (01/07/19 08:56) Blood Culture (01/07/19 08:57) Xr Chest 2v (01/07/19 08:58) Ekg-Routine (01/07/19 08:58) Creatine Kinase (01/07/19 08:56) Creatine Kinase Mb (01/07/19 08:56) Troponin I (01/07/19 08:56) Urine Culture (01/07/19 11:00) Vital Signs Date Time Temp Pulse Resp B/P (MAP) Pulse Ox O2 Delivery O2 Flow Rate FiO2 01/07/19 12:30 94 18 165/78 (107) 95 Room Air 01/07/19 11:30 95 18 158/68 (98) 96 Room Air 01/07/19 10:30 91 18 143/65 (91) 93 Room Air 01/07/19 09:30 101 18 153/76 (101) 94 Room Air 01/07/19 08:30 98.4 104 18 01/07/19 08:30 98.4 104 18 92 Room Air 01/07/19 08:30 98.4 104 18 140/71 (94) 92 Room Air Laboratory Tests Test 01/07/19 08:51 01/07/19 11:21 White Blood Count 2.4 10^3/uL (4.5-11.0) L Red Blood Count 2.57 10^6/uL (4.00-5.20) L Hemoglobin 8.4 g/dL (12.0-15.0) L Hematocrit 25.1 % (36.0-46.0) L Mean Corpuscular Volume 97.7 fL (78-100) Mean Corpuscular Hemoglobin 32.7 pg (26-34) Mean Corpuscular Hemoglobin Concent 33.5 g/dL (33-37) Red Cell Distribution Width 19.6 % (11.5-14.5) H Platelet Count 5 10^3/uL (150-400) *L Mean Platelet Volume 9.6 fL (7.8-11.0) Neutrophils (%) (Auto) 71.1 % (41.0-85.0) Lymphocytes (%) (Auto) 9.2 % (24.0-44.0) L Monocytes (%) (Auto) 10.5 % (5.0-12.0) Neutrophils # (Auto) 1.7 10^3/uL (1.8-7.7) L Lymphocytes # (Auto) 0.2 10^3/uL (1.0-4.8) L Monocytes # (Auto) 0.3 10^3/uL (0.3-0.8) Absolute Immature Granulocyte (auto 0.21 10^3 u/L (0-2) Immature Granulocytes % 8.80 % (0.00-0.50) H Eosinophils % 0.0 % (0.0-5.0) Basophils % 0.4 % (0.0-0.2) H Basophils # 0.0 10^3/uL (0.0-0.1) Eosinophil Count 0.0 10^3/uL (0.0-0.2) Sodium Level 134 mmol/L (132-145) Potassium Level 2.8 mmol/L (3.6-5.2) L Chloride Level 96.0 mmol/L (96-109) Carbon Dioxide Level 24.2 mmol/L (20.0-32) Anion Gap 16.6 Blood Urea Nitrogen 16 mg/dL (7-18) Creatinine 0.99 mg/dL (0.59-1.40) Estimated GFR () 67.1 (>/=60) BUN/Creatinine Ratio 16.0 Glucose Level 109 mg/dL (70-110) Calcium Level 8.4 mg/dL (8.4-10.5) Total Bilirubin 0.8 mg/dL (0.2-1.0) Aspartate Amino Transferase (AST) 26 U/L (0-35) Alanine Aminotransferase (ALT) 18 U/L (12-78) Alkaline Phosphatase 71 U/L (50-136) Total Creatine Kinase 52 U/L (26-192) Creatine Kinase MB < 0.5 ng/mL (0.5-3.6) L Troponin I 0.02 ng/mL (0.00-0.05) Total Protein 6.9 g/dL (6.4-8.2) Albumin 3.4 g/dL (3.4-5.0) Globulin 3.5 Amylase Level 61 U/L (25-115) Lipase 111 U/L (114-286) L Urine Collection Type CATH Urine Color YELLOW (YELLOW) Urine Appearance SLIGHTLY CLOUDY (CLEAR) Urine Bilirubin NEGATIVE MG/DL (NEGATIVE) Urine Ketones 15 mg/dL (NEGATIVE) H Urine Specific [place] 1.020 (1.005-1.035) Urine pH 6 (5.0-6.0) Urine Protein 100 mg/dL (NEGATIVE) H Urine Urobilinogen NORMAL (NEGATIVE) Urine Nitrate NEGATIVE (NEGATIVE) Urine Leukocyte Esterase 500/uL 2+ (NEGATIVE) Urine Blood 250 4+ (NEGATIVE) H Urine RBC 5-10 RBC/HPF (NONE SEEN) H Urine WBC TNTC WBC/HPF (0-2) H Urine Squamous Epithelial Cells RARE #/HPF (FEW) Urine Renal Epithelial Cells RARE #/HPF (NONE SEEN) Urine Amorphous Sediment MODERATE (NONE SEEN) Urine Bacteria FEW (NONE SEEN) H Urine Hyaline Casts 0-1 (NONE SEEN) Urine Fine Granular Casts 0-1 Urine Other FEW WHITE BLOOD CELL Urine Glucose NORMAL (NEGATIVE) EKG/XRAY/CT/US EKG: NSR, no ST T wave changes Consult/PCP Time Consult/PCP Called: 12:22 Consult/PCP: DR MONROY Departure Time of Disposition: 13:00 Disposition: 01 HOME, SELF-CARE Impression: Primary Impression: UTI (urinary tract infection) Additional Impression: Thrombocytopenia Condition: Improved Referrals: BOZENA LAZARO MD (PCP) PRIMARY CARE PROVIDER Comments PATIENT REQUESTED [facility] Duration or Time Spent with Pa: 20 M Problem Qualifiers MARIA LUZ MARTINEZ MD Jan 07, 2019 09:02
--- NOTE | 2019-01-07 09:09 | PCM.EKG ---
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
[2019-01-07 09:21] LABS: BASOPHIL % 0.4 % (0.0-0.2); HEMOGLOBIN 8.4 g/dL (12.0-15.0); LYMPHOCYTES # 0.2 10^3/uL (1.0-4.8); LYMPHOCYTES % 9.2 % (24.0-44.0); MEAN CELL HGB 32.7 pg (26-34); MEAN CELL HGB CONCENTRATION 33.5 g/dL (33-37); MEAN CORP VOLUME 97.7 fL (78-100); MEAN PLATELET VOLUME 9.6 fL (7.8-11.0); MONOCYTES # 0.3 10^3/uL (0.3-0.8); MONOCYTES % 10.5 % (5.0-12.0); NEUTROPHIL # 1.7 10^3/uL (1.8-7.7); NEUTROPHILS % 71.1 % (41.0-85.0); RED CELL DISTRIBUTION WIDTH 19.6 % (11.5-14.5); WHITE BLOOD CELL 2.4 10^3/uL (4.5-11.0)
[2019-01-07 09:30] VITALS: BP 153/76
--- NOTE | 2019-01-07 09:40 | DIREP ---
PROCEDURE:CHEST 2 VIEWS COMPARISON:[facility], CT, CTA CHEST, 08/08/2018, 04:20 PM. [facility], CR, XRAY CHEST SINGLE VW, 08/08/2018, 02:36 PM. INDICATIONS:FEVER, COUGH, H/O LUNG CA FINDINGS: LUNGS/PLEURA:Vague retrocardiac opacity in the lower lobe on the left. No effusion detected on either side. VASCULATURE:Normal. Unremarkable pulmonary vasculature. CARDIAC:Normal. No cardiac silhouette abnormality or cardiomegaly. MEDIASTINUM:Right MediPort, catheter tip overlying the superior vena cava BONES:Normal. No fracture or visible bony lesion. OTHER:Negative. CONCLUSION:Left lower lobe opacity/infiltrate. Right interval MediPort. Dictated by: Chemo Gary MD on 01/07/2019 at 09:29 AM
[2019-01-07 09:47] LABS: ALANINE AMINOTRANSFERASE(ML) 18 U/L (12-78); ALKALINE PHOSPHATASE 71 U/L (50-136); ASPARTATE AMINO TRANSFERASE 26 U/L (0-35); CALCIUM 8.4 mg/dL (8.4-10.5); CARBON DIOXIDE 24.2 mmol/L (20.0-32); GLUCOSE 109 mg/dL (70-110)
[2019-01-07 10:30] VITALS: BP 143/65
[2019-01-07 11:26] LABS: BILIRUBIN,URINE NEGATIVE (NEGATIVE); UROBILINOGEN,URINE NORMAL (NEGATIVE)
[2019-01-07 11:29] LABS: APPEARANCE,URINE SLIGHTLY CLOUDY (CLEAR); UA COLOR YELLOW (YELLOW)
[2019-01-07 11:30] VITALS: BP 158/68
--- NOTE | 2019-01-07 11:59 | NUR ---
LIBORIO MARTINEZ ON THE PHONE ATTEMPTING TO TALK WITH DOCTOR OCHOA.
--- NOTE | 2019-01-07 12:06 | NUR ---
UPDATE DR. MARTINEZ ON THE PHONE WITH [facility] FOR TRANSFER PER PATIENT REQUEST. THEY DO NOT WANT TO BE ADMITTED HERE FOR TREATMENT THAT DR. CAPONE RECOMMENDED TO DR. MARTINEZ.
--- NOTE | 2019-01-07 12:18 | NUR ---
[facility] DOCTOR MICHELLE ON THE PHONE WITH [facility] TO DISCUSS TRANFER.
[2019-01-07 12:30] VITALS: BP 165/78
--- NOTE | 2019-01-07 12:52 | NUR ---
DEPART PATIENT DISCHARGED TO TRANSFER TO [facility] ER VIA POV. PATIENT AMBULTORY WITH OUT OF ED. CALLED REPORT TO KATIE JAMA AT [facility] ER.
[2019-01-08 06:02] LABS: ANISOCYTOSIS 2+ (NEGATIVE); BAND NEUTROPHILS 1 % (2-6); LYMPHOCYTE 14 % (25-36); MONOCYTE 10 % (3-9); SEGMENTED NEUTROPHILS 75 % (31-76)
== END 2019-01-07 12:48 | disposition home or self-care (01) ==
LOC: ER 08:28
DX: N39.0 Urinary tract infection, site not specified (principal); D69.6 Thrombocytopenia, unspecified; E78.00 Pure hypercholesterolemia, unspecified; I25.2 Old myocardial infarction; I10 Essential (primary) hypertension; Z90.89 Acquired absence of other organs; Z90.710 Acquired absence of both cervix and uterus; Z79.01 Long term (current) use of anticoagulants; Z79.899 Other long term (current) drug therapy
CPT/HCPCS: 36415; 71046; 80053; 81000; 82150; 82550; 82553; 83690; 84484; 85025; 87040; 87077; 87086; 87186; 93005; 99285

== ENCOUNTER → 2020-03-04 | Outpatient (CLI) | payer MEDICARE, OTHER ==
[~2020-03-04] MED LIST changes: +MULT-419 PO; -MULT1TAB52 PO
== END | disposition home or self-care (01) ==
LOC: NPLAB 13:15
PROVIDERS: ATTEND Internal Medicine
DX: U07.1 COVID-19 (principal)
CPT/HCPCS: 87426

== ENCOUNTER → 2020-03-08 | Outpatient (CLI) | payer MEDICARE, OTHER ==
[~2020-03-08] MED LIST changes: +APIX5TAB PO; +BAMLANIVIMAB (EUA) 700 MG in NS 250ML 180 ML IV ONE; +BIOT25005 PO; +CHOL500051 PO; +FOLI20CA PO; +FURO20TA3 PO; +LACT460C PO; +LOSA50TA14 PO; +METO-238 PO; +POTA20TA14 PO; +SOTA80TA PO; +VITA1TAB19 PO; +ZINC50TA42 PO
== END | disposition home or self-care (01) ==
LOC: OPTX 10:03
PROVIDERS: ATTEND Internal Medicine
DX: U07.1 COVID-19 (principal); R50.9 Fever, unspecified
CPT/HCPCS: J7050; M0239; Q0239; 96365; 96366

== ENCOUNTER 2020-03-20 12:19 | Emergency (ER) | payer MEDICARE, OTHER ==
[~2020-03-20] VITALS: Ht 165.1 cm; Wt 68.0 kg
[~2020-03-20 12:19] MED LIST changes: -APIX5TAB PO; -BAMLANIVIMAB (EUA) 700 MG in NS 250ML 180 ML IV ONE; -BIOT25005 PO; -CHOL500051 PO; -FOLI20CA PO; -FURO20TA3 PO; -LACT460C PO; -LOSA50TA14 PO; -METO-238 PO; -POTA20TA14 PO; -SOTA80TA PO; -VITA1TAB19 PO; -ZINC50TA42 PO
--- NOTE | 2020-03-20 12:22 | NUR ---
ARRIVAL PT ARRIVED TO ED WITH C/O WEAKNESS, N/V/D, FEVER, SOB, TIGHTNESS IN CHEST FOR 2 DAYS. PT DENIES CHEST PAIN. PT TESTED POSITIVE FOR COVID 19 ON 03/04/[address] MARLEY OFFICE. PT RECEIVED BAMLANIVIMAB INFUSION. BEDSIDE MONITORS APPLIED. VITAL SIGNS STABLE. BED IN LOW LOCKED POSITION.
[2020-03-20 12:37] VITALS: BP 143/58
[2020-03-20] MEDS ORDERED: ZOFRAN IV STA (13:09)
[2020-03-20 13:19] LABS: BASOPHIL % 0.2 % (0.0-0.2); EOSINOPHIL % 0.1 % (0.0-5.0); LYMPHOCYTES # 0.46 10^3/uL1 (1.0-4.8); MEAN CORP HGB 34.3 pg (26-34); MONOCYTES # 0.8 10^3/uL (0.3-0.8); NEUTROPHIL # 10.2 10^3/uL (1.8-7.7); NEUTROPHILS % 88.2 % (41.0-85.0); PLATELET COUNT 227 10^3/uL (150-400); RED CELL DISTRIBUTION WIDTH 14.9 % (11.5-14.5)
[2020-03-20] MEDS ORDERED: CHOL500051 PO (13:26)
[2020-03-20] MEDS ORDERED: APIX5TAB PO (13:26)
[2020-03-20] MEDS ORDERED: VITA1TAB19 PO (13:26)
[2020-03-20] MEDS ORDERED: FURO20TA3 PO (13:26)
[2020-03-20] MEDS ORDERED: METO-238 PO (13:26)
[2020-03-20] MEDS ORDERED: ZINC50TA42 PO (13:26)
[2020-03-20] MEDS ORDERED: LACT460C PO (13:26)
[2020-03-20] MEDS ORDERED: ASPI-667 PO (13:26)
[2020-03-20] MEDS ORDERED: SOTA80TA PO (13:26)
[2020-03-20] MEDS ORDERED: BIOT25005 PO (13:26)
[2020-03-20] MEDS ORDERED: FOLI20CA PO (13:26)
[2020-03-20] MEDS ORDERED: LOSA50TA14 PO (13:26)
[2020-03-20] MEDS ORDERED: POTA20TA14 PO (13:26)
[2020-03-20] MEDS ORDERED: ZOFRAN ONE (13:27)
[2020-03-20] MEDS ORDERED: NS 1000ML 1,000 ML IV ONE (13:30)
[2020-03-20 13:32] VITALS: BP 138/55
[2020-03-20 13:47] LABS: ALANINE AMINOTRANSFERASE(ML) 18 U/L (12-78); ALKALINE PHOSPHATASE 90 U/L (50-136); ASPARTATE AMINO TRANSFERASE 24 U/L (0-35); CALCIUM 9.1 mg/dL (8.4-10.5); GLUCOSE 117 mg/dL (70-110)
--- NOTE | 2020-03-20 13:53 | DIREP ---
PROCEDURE:CHEST 1 VIEW COMPARISON:[facility], CR, XRAY CHEST 2 VWS, 01/07/2019, 09:01 AM. INDICATIONS:SHORTNESS OF BREATH FINDINGS: LUNGS/PLEURA:No significant pulmonary parenchymal abnormalities. No effusions. VASCULATURE:Normal. Unremarkable pulmonary vasculature. CARDIAC:Cardiomegaly. MEDIASTINUM:Right port line in place with tip in the superior vena cava. Calcified aortic arch. BONES:Resection distal right clavicle. OTHER:Negative. CONCLUSION:No acute cardiopulmonary abnormalities. Dictated by: Kody Lovell M.D. on 03/20/2020 at 01:38 PM
[2020-03-20 13:56] LABS: ANISOCYTOSIS 1+ (NEGATIVE); DIFFERENTIAL COMMENT NORMAL; LYMPHOCYTE 4 % (25-36); MONOCYTE 7 % (3-9); MYELOCYTES 1 %; SEGMENTED NEUTROPHILS 87 % (31-76)
--- NOTE | 2020-03-20 14:34 | ER.PDOC ---
General Chief Complaint: General Complaint Stated Complaint: WEAKNESS,NVD,FEVER,SOB,CHESTPAIN Time seen by MD: 14:22 Source: patient Exam Limitations: no limitations History of Present Illness Initial Comments on chemo , Severity/Quality: moderate Associated Symptoms (vomiting): mild vomiting Prior symptoms/Treatment: Similar symptoms previous Allergies: Coded Allergies: azithromycin (Verified Allergy, Unknown, 10/21/17) Home Meds Reported Medications Zinc (ZINC) 50 Mg Tablet, 50 MG PO DAILY24, TAB 03/20/20 Biotin (BIOTIN) 2,500 Mcg Capsule, 5000 MCG PO DAILY24, CAPSULE 03/20/20 Vitamin B Complex (B COMPLEX) 1 Each Tablet, 1 EACH PO DAILY24, TAB 03/20/20 Apixaban (Eliquis) 5 Mg Tablet, 5 MG PO DAILY24, TABLET 03/20/20 Potassium Chloride (POTASSIUM CHLORIDE) 20 Meq Tab.er.prt, 20 MEQ PO DAILY24 03/20/20 Metoprolol Succinate (METOPROLOL SUCCINATE) Unknown Strength Tab.er.24h, PO DAILY24, TABLET 03/20/20 Lactobacillus Acidophilus (FLORAJEN) 460 Mg Capsule, 460 MG PO DAILY24, CAPSULE 03/20/20 Losartan Potassium (LOSARTAN POTASSIUM) 50 Mg Tablet, 50 MG PO DAILY24, TAB 03/20/20 Furosemide (FUROSEMIDE) 20 Mg Tablet, 20 MG PO DAILY24, TAB 03/20/20 Folic Acid (FOLIC ACID) 20 Mg Capsule, 1 MG PO DAILY24, CAPSULE 03/20/20 Sotalol Hcl (SOTALOL) 80 Mg Tablet, 40 MG PO BID, TAB 03/20/20 Cholecalciferol (Vitamin D3) (Vitamin D3) 125 Mcg (5000 Unit) Capsule, 1 TAB PO DAILY24 03/20/20 Aspirin (ASPIRIN) 81 Mg Tab.chew, 81 MG PO WED/WED/WED, TAB.CHEW 03/20/20 Multivitamin (MULTIVITAMINS) 1 Each Tablet, 1 TAB PO DAILY, #90 TAB 3 Refills 07/27/18 Citalopram Hydrobromide (CITALOPRAM HBR) 20 Mg Tablet, 1 TAB PO DAILY, #30 TAB 5 Refills 07/27/18 Isosorbide Mononitrate (ISOSORBIDE MONONITRATE ER) 30 Mg Tab.er.24h, 1 TAB PO B ID, #30 TAB 5 Refills 07/27/18 Pravastatin Sodium (PRAVACHOL) 80 Mg Tablet, 1 TAB PO DAILY, #30 TAB 5 Refills 07/27/18 Niacin (NIACIN) 500 Mg Capsule.er, 500 MG PO DAILY24 07/27/18 Discontinued Reported Medications Aspirin (ASPIRIN) 81 Mg Tab.chew, 1 TAB PO DAILY, #30 TAB 3 Refills 07/27/18 Losartan Potassium (LOSARTAN POTASSIUM) 100 Mg Tablet, 1 TAB PO DAILY, #30 TAB 5 Refills 07/27/18 Clopidogrel Bisulfate (CLOPIDOGREL) 75 Mg Tablet, 1 TAB PO DAILY, #90 TAB 1 Refill 07/27/18 Triamterene/Hydrochlorothiazid (TRIAMTERENE-HCTZ 75-50 MG TAB) 1 Each Tablet, 1 TAB PO DAILY, #30 TAB 5 Refills 07/27/18 Verapamil Hcl (VERAPAMIL ER) 240 Mg Cap24h.pel, 80 MG PO BID 07/27/18 Potassium Chloride (POTASSIUM CHLORIDE) 10 Meq Capsule.er, 1 CAP PO DAILY, #90 CAP 1 Refill 07/27/18 Metoprolol Tartrate 50MG (LOPRESSER 50MG) 50 Mg Tablet, 1 TAB PO DAILY24, #60 TAB 5 Refills 07/27/18 Vital Signs First Vital Signs Date Time Temp Pulse Resp B/P (MAP) Pulse Ox O2 Delivery O2 Flow Rate FiO2 03/20/20 12:37 98.3 70 16 03/20/20 12:37 143/58 (86) 99 Room Air Last Vital Signs Date Time Temp Pulse Resp B/P (MAP) Pulse Ox O2 Delivery O2 Flow Rate FiO2 03/20/20 13:32 98.3 71 16 138/55 (82) 99 Room Air Past Medical History Medical History: cancer, high cholesterol, heart attack, hypertension Surgical History: hysterectomy, shoulder, tonsillectomy, other Social History Alcohol Use: rarely Drug Use: none Reviewed Nursing Reviewed: Vital Signs, Abn. Noted All Other Systems: Reviewed and Negative Physical Exam General Appearance: No Apparent Distress, WD/WN HEENT: PERRL/EOMI, Normal ENT Inspection, TMs Normal, Pharynx Normal Neck: Non-Tender, Full Range of Motion, Supple, Normal Inspection Respiratory: chest non-tender, lungs clear, normal breath sounds, no respiratory distress, no accessory muscle use Cardiovascular: Normal Peripheral Pulses, Regular Rate, Rhythm, No Edema, No Gallop, No JVD, No Murmur Gastrointestinal: Normal Bowel Sounds, Non Tender, Soft Back: Normal Inspection, No CVA Tenderness, No Vertebral Tenderness Extremities: Normal Range of Motion, Non-Tender, Normal Inspection, No Pedal Edema, No Calf Tenderness, Normal Capillary Refill, Pelvis Stable 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 (03/20/20 13:05) Xr Chest 1v (03/20/20 13:05) Ekg-Routine (03/20/20 13:05) Ondansetron Hcl/Pf (Zofran) (03/20/20 13:09) 0.9 % Sodium Chloride (Ns 1000ml) (03/20/20 13:30) Vital Signs Date Time Temp Pulse Resp B/P (MAP) Pulse Ox O2 Delivery O2 Flow Rate FiO2 03/20/20 13:32 98.3 71 16 138/55 (82) 99 Room Air 03/20/20 12:37 98.3 70 16 99 03/20/20 12:37 98.3 70 16 143/58 (86) 99 Room Air 03/20/20 12:37 98.3 70 16 Administered Medications Medications (Trade) Dose Ordered Sig/Flavia Route PRN Reason Start Time Stop Time Status Last Admin Dose Admin Ondansetron HCl (Zofran) 4 mg STAT STAT IV 03/20/20 13:09 03/20/20 13:10 UNV 03/20/20 13:28 4 MG Sodium Chloride 1,000 ml @ 0 mls/hr Q0M ONCE IV 03/20/20 13:30 03/20/20 13:31 UNV 03/20/20 13:15 1,200 MLS/HR Laboratory Tests Test 03/20/20 13:02 03/20/20 13:19 White Blood Count 11.5 10^3/uL (4.5-11.0) H Red Blood Count 2.71 10^6/uL (4.00-5.20) L Hemoglobin 9.3 g/dL (12.0-15.0) L Hematocrit 28.2 % (36.0-46.0) L Mean Corpuscular Volume 104.1 fL (78-100) H Mean Corpuscular Hemoglobin 34.3 pg (26-34) H Mean Corpuscular Hemoglobin Concent 33.0 g/dL (33-36.5) Red Cell Distribution Width 14.9 % (11.5-14.5) H Platelet Count 227 10^3/uL (150-400) Mean Platelet Volume 9.6 fL (7.8-11.0) Neutrophils (%) (Auto) 88.2 % (41.0-85.0) H Lymphocytes (%) (Auto) 4.0 % (24.0-44.0) *L Monocytes (%) (Auto) 7.0 % (5.0-12.0) Neutrophils # (Auto) 10.2 10^3/uL (1.8-7.7) H Lymphocytes # (Auto) 0.46 10^3/uL1 (1.0-4.8) L Monocytes # (Auto) 0.8 10^3/uL (0.3-0.8) Absolute Immature Granulocyte (auto 0.06 10^3 u/L (0-2) Absolute Eosinophils (auto) 0.0 10^3/uL (0.0-0.2) Immature Granulocytes % 0.50 % (0.00-0.50) Eosinophils % 0.1 % (0.0-5.0) Basophils % 0.2 % (0.0-0.2) Basophils # 0.0 10^3/uL (0.0-0.1) Prothrombin Time 12.9 SEC (9.3-11.3) H Prothrombin Time INR (Non-Therap) 1.3 Activated Partial Thromboplast Time 33.5 SEC (24.67-30.72) Sodium Level 127 mmol/L (132-145) L Potassium Level 3.7 mmol/L (3.6-5.2) Chloride Level 92.0 mmol/L (96-109) L Carbon Dioxide Level 28.0 mmol/L (20.0-32) Anion Gap 10.7 Blood Urea Nitrogen 16 mg/dL (7-18) Creatinine 1.20 mg/dL (0.59-1.40) Estimated GFR () 53.4 (>/=60) Est GFR (CKD-EPI)(Non-Afr Chadian) 44.2 (>/=60) BUN/Creatinine Ratio 13.0 Glucose Level 117 mg/dL (70-110) H Calcium Level 9.1 mg/dL (8.4-10.5) Total Bilirubin 1.0 mg/dL (0.2-1.0) Aspartate Amino Transferase (AST) 24 U/L (0-35) Alanine Aminotransferase (ALT) 18 U/L (12-78) Alkaline Phosphatase 90 U/L (50-136) Total Creatine Kinase 40 U/L (26-192) Creatine Kinase MB < 0.5 ng/mL (0.5-3.6) L Troponin I < 0.02 ng/mL (0.00-0.05) Pro-B-Type Natriuretic Peptide 6477 pg/mL (0-125) H Total Protein 6.8 g/dL (6.4-8.2) Albumin 2.6 g/dL (3.4-5.0) L Globulin 4.2 Albumin/Globulin Ratio 0.619 Differential Total Cells Counted 100 #CELLS Segmented Neutrophils 87 % (31-76) H Lymphocytes 4 % (25-36) L Monocytes 7 % (3-9) Metamyelocytes 1 % Myelocytes 1 % Differential Comment NORMAL Platelet Estimate ADEQUATE Platelet Morphology NORMAL Anisocytosis 1+ (NEGATIVE) Spherocytes 1+ (NEGATIVE) Blood Morphology Comment NORMAL MORPHOLOGY ER DEPART Departure Time of Disposition: 14:33 Disposition: 01 HOME, SELF-CARE Impression: Primary Impression: Volume depletion Condition: Improved Referrals: BOZENA LAZARO MD (PCP) PRIMARY CARE PROVIDER Duration or Time Spent with Pa: MARIA LUZ Macias MD Mar 20, 2020 14:34
--- NOTE | 2020-03-20 14:42 | PCM.EKG ---
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
== END 2020-03-20 14:40 | disposition home or self-care (01) ==
LOC: ER 12:19
DX: R11.10 Vomiting, unspecified (principal); E86.9 Volume depletion, unspecified; R79.1 Abnormal coagulation profile
CPT/HCPCS: 36415; 71045; 80053; 82550; 82553; 83880; 84484; 85025; 85610; 85730; 93005; 96361; 96374; 99285; J2405

== ENCOUNTER → 2020-04-05 | Outpatient (CLI) | payer MEDICARE, OTHER ==
[~2020-04-05] MED LIST changes: +APIX5TAB PO; +BIOT25005 PO; +CHOL500051 PO; +FOLI20CA PO; +FURO20TA3 PO; +LACT460C PO; +LOSA50TA14 PO; +METO-238 PO; +POTA20TA14 PO; +SOTA80TA PO; +VITA1TAB19 PO; +ZINC50TA42 PO
--- NOTE | 2020-04-05 16:23 | DIREP ---
PROCEDURE:CT SPINE THORACIC W/O COMPARISON:None. INDICATIONS:COMPRESSION FRACTURE T-12 TECHNIQUE:Multi-planar CT images were obtained and created without intravenous contrast. FINDINGS: VERTEBRAE:There is a compression deformity at the T12 vertebral body, inferiorly, resulting in approximately 30% loss of height. There is mild ventral osteophytosis throughout the thoracic spine. ALIGNMENT:Straightening of the normal thoracic kyphosis. No significant spondylolisthesis. DISCS:No significant disc space narrowing is seen. No significant canal stenosis or neural foraminal narrowing. SPINAL CORD/CONUS:Normal. PARASPINAL AREA:There is significant atherosclerotic calcification of the aortic arch, descending thoracic aorta, visualized abdominal aorta. Visualized lung is aerated. CONCLUSION: 1. Compression fracture of the T12 vertebral body resulting in 30% loss of height. 2. Mild multilevel degenerative change of the thoracic spine. Dictated by: Shaw Bonilla MD on 04/05/2020 at 04:13 PM
--- NOTE | 2020-04-05 16:36 | DIREP ---
PROCEDURE: CT SPINE LUMBAR W/O TECHNIQUE:Axial cuts were obtained through the lumbar spine. The images were viewed at bone settings. COMPARISON:None. INDICATIONS:LOWER BACK PAIN FINDINGS: ALIGNMENT:Straightening of the normal lumbar lordosis. No significant spondylolisthesis. VERTEBRAE:Compression deformity at the inferior aspect of T12 resulting in 33% loss of height. Anterior wedging of the L3 vertebral body is stacy concavity superior endplate of L4 for which age-indeterminate compression deformities are suspected. Ventral osteophytosis of the lower thoracic and lumbar spine. DISC SPACE:Mild disc space narrowing at L1-L2 and L2-L3. PARASPINAL AREA:Paraspinal musculature is normal. There is mild subcutaneous stranding throughout the lower back. Urinary bladder is markedly distended. Please correlate clinically for urinary retention. Heavy calcification of the infrarenal abdominal aorta. Visualized lung bases are aerated. OTHER:No additional findings. LUMBAR DISC LEVELS T12-L1:No significant canal stenosis or neural foraminal narrowing. L1-L2:Mild posterior disc bulge eccentric to the right. Mild effacement of the anterior thecal sac. No significant canal stenosis. Mild right neural foraminal narrowing. L2-L3:Broad-based disc bulge and right greater than left facet joint hypertrophy. There is mild canal stenosis. No significant neural foraminal narrowing. L3-L4:Broad-based disc bulge and facet joint hypertrophy resulting in mild canal stenosis. There is mild to moderate right greater than left neural foraminal narrowing. L4-L5:Broad-based disc bulge, facet joint hypertrophy, ligamentum flavum thickening resulting in mild to moderate canal stenosis and mild to moderate bilateral neural foraminal narrowing. L5-S1:Posterior disc bulge and facet joint hypertrophy. No significant canal stenosis or neural foraminal narrowing. CONCLUSION: 1. Multilevel degenerative change of the lumbar spine, as detailed above. Findings are most prominent at L3-L4 and L4-5 with there is evidence of mild to moderate canal stenosis and neural foraminal narrowing. 2. Compression deformity at the inferior aspect of T12 resulting in 33% loss of height. In addition there is suspected compression deformities of superior aspects of L3 and L4. Please correlate with point tenderness to determine the degree of acuity. Dictated by: Shaw Bonilla MD on 04/05/2020 at 04:29 PM
== END | disposition home or self-care (01) ==
LOC: RAD 14:12
PROVIDERS: ATTEND Orthopaedic Surgery
DX: S22.088A Other fracture of T11-T12 vertebra, initial encounter for closed fracture (principal); M47.816 Spondylosis without myelopathy or radiculopathy, lumbar region; M48.061 Spinal stenosis, lumbar region without neurogenic claudication; M43.8X4 Other specified deforming dorsopathies, thoracic region; X58.XXXA Exposure to other specified factors, initial encounter; Y93.89 Activity, other specified; Y92.89 Other specified places as the place of occurrence of the external cause; Y99.8 Other external cause status
CPT/HCPCS: 72128; 72131

== ENCOUNTER → 2020-05-13 | Outpatient (CLI) | payer MEDICARE, OTHER ==
[~2020-05-13] MED LIST changes: -ISOS30TA4 PO; +ISOS30TA73 PO
--- NOTE | 2020-05-13 11:40 | DIREP ---
PROCEDURE: CT SPINE LUMBAR W/O TECHNIQUE:Axial cuts were obtained through the lumbar spine. The images were viewed at bone settings. COMPARISON:[facility], CT, CT SPINE THORACIC W/O, 04/05/2020, 03:45 PM. [facility], CT, CT SPINE LUMBAR W/O, 04/05/2020, 03:49 PM. INDICATIONS:DORSALGIA, LOW BACK PAIN, MALIGNANT NEOPLASM OF BRONCHUS OR LUNG FINDINGS: ALIGNMENT:On the AP view, there is a gentle levoscoliosis of the lumbar spine. On the lateral view, the lumbar lordosis is preserved. No pars defect or spondylolisthesis is seen. The patient likely has 5 [id number] lumbar vertebrae VERTEBRAE:Review of the architecture of the bone shows ill-defined lucencies involving the vertebral body which are worrisome for metastatic disease, especially given the patient's history. A follow-up bone scan should be obtained. A follow-up MRI would also be helpful to evaluate for metastatic disease. There is now a new almost 75% loss of height involving T12, which is new since the last study. In addition, there may be mild compression also involving L1 with slight posterior retropulsion of the posterior superior cortex of L1, best seen on sagittal image number 24 and on transaxial image number 14, series 3. Mild compression of the anterior and superior aspects of L3 also noted. Mild narrowing of the disc space throughout the lumbar spine. Bulging annulus is identified which are better described below. PARASPINAL AREA:Normal. Atheromatous calcifications in the aorta. No adrenal enlargement is seen. No renal stones or hydronephrosis is seen. No retrocrural adenopathy or fracture of the sacrum is identified. OTHER:No additional findings. LUMBAR DISC LEVELS T11-T12: No focal disc. No foraminal or central stenosis. Mild facet and ligamenta flava hypertrophy noted. T12-L1:Severe compression of T12. Slight retropulsion of the posterior inferior cortex of T12 and the posterior superior cortex of L1. No foraminal or central stenosis is seen. Mild facet ligamenta flava hypertrophy. Mild ventral deformity of the thecal sac due to the retropulsion of the posterior superior cortex of L1 to words the left of midline. L1-L2:3-4 mm generalized disc bulge. Neural foramina show mild narrowing on the right side. Lateral recess narrowing also noted, right more than the left. No focal disc. No central stenosis. Mild facet and ligamenta flava hypertrophy noted. L2-L3:4-5 mm moderate disc bulge. Neural foramina are preserved. Lateral recess narrowing. [id number] central stenosis. Moderate facet and ligamenta flava hypertrophy noted. L3-L4:5 mm generalized disc bulge. Neural foramina show mild narrowing. Severe lateral recess narrowing. Mild central stenosis. Moderate facet and ligamenta flava hypertrophy noted. L4-L5:Moderate disc bulge. Neural foramina are preserved. Lateral recess narrowing. Borderline to mild central stenosis. Moderate facet and ligamenta flava hypertrophy noted. L5-S1:Mild disc bulge. Neural foramina are preserved. Mild lateral recess narrowing. No focal disc. No central stenosis is seen. CONCLUSION:Ill-defined lucencies in the lumbar vertebrae worrisome for metastatic disease. About 75% loss of height involving T12, new since the last study. Compression also seen involving the posterior and superior cortex of L1 and anteriorly anterior cortex of L3. These are compression fractures to a mild extent at L1 and L3. Severe compression of T12. Recommend a follow-up MRI or a bone scan to evaluate for bony metastases in the lumbar spine. Multilevel disc bulges with narrowing of neural foramen and lateral recesses as described above. Mild to moderate central stenosis at L2-3, mild central stenosis at L3-4 and borderline to mild central stenosis at L4-5 along with facet disease. Dictated by: Natan Alvarenga MD on 05/13/2020 at 11:25 AM
== END | disposition home or self-care (01) ==
LOC: RAD 10:28
PROVIDERS: ATTEND Internal Medicine
DX: C34.90 Malignant neoplasm of unspecified part of unspecified bronchus or lung (principal); M48.061 Spinal stenosis, lumbar region without neurogenic claudication; M54.9 Dorsalgia, unspecified; M54.5 Low back pain; G95.20 Unspecified cord compression
CPT/HCPCS: 72131

== ENCOUNTER → 2021-02-06 | Outpatient (CLI) | payer MEDICARE, OTHER ==
[~2021-02-06] MED LIST changes: +NIAC500C12 PO; -NIAC500C3 PO; +POTA-148 PO; -POTA20TA14 PO
== END | disposition home or self-care (01) ==
LOC: NPLAB 12:33
PROVIDERS: ATTEND Internal Medicine
DX: R50.9 Fever, unspecified (principal); Z20.822 Contact with and (suspected) exposure to COVID-19
CPT/HCPCS: 87426

== ENCOUNTER → 2021-02-17 | Outpatient (CLI) | payer MEDICARE, OTHER ==
[2021-02-17 15:24] LABS: BASOPHIL % 0.5 % (0.0-0.2); EOSINOPHIL # 0.2 10^3/uL (0.0-0.2); EOSINOPHIL % 2.6 % (0.0-5.0); LYMPHOCYTES # 1.38 10^3/uL1 (1.0-4.8); LYMPHOCYTES % 17.6 % (24.0-44.0); MEAN CORP HGB 32.6 pg (26-34); MONOCYTES # 0.7 10^3/uL (0.3-0.8); MONOCYTES % 8.3 % (5.0-12.0); NEUTROPHIL # 5.6 10^3/uL (1.8-7.7); NEUTROPHILS % 70.9 % (41.0-85.0); PLATELET COUNT 198 10^3/uL (150-400); RED CELL DISTRIBUTION WIDTH 15.9 % (11.5-14.5)
[2021-02-17 15:46] LABS: CARBON DIOXIDE 31.5 mmol/L (20.0-32)
== END | disposition home or self-care (01) ==
LOC: LAB 15:09
PROVIDERS: ATTEND Internal Medicine Cardiovascular Disease
DX: I48.0 Paroxysmal atrial fibrillation (principal); R06.02 Shortness of breath
CPT/HCPCS: 36415; 80053; 85025

== ENCOUNTER → 2021-10-16 | Outpatient (CLI) | payer MEDICARE ==
[2021-10-16] MEDS: LEXISCAN IV ONE (10:21)
--- NOTE | 2021-10-17 10:38 | STRESS ---
DATE OF SERVICE: 10/16/2021 DICTATOR NAME: GORGE DYANACrystal CARDIAC STRESS TEST INDICATION: Chest pain. FINDINGS: Baseline EKG shows marked sinus bradycardia with a heart rate of 47 beats per minute. Stress EKG shows normal sinus rhythm, unchanged from baseline. Premature atrial complexes were noted during stress. At the end of recovery, EKG shows normal sinus rhythm, unchanged from baseline. Baseline heart rate is 47 beats per minute and delores to 67 beats per minute during stress. At the end of recovery, the heart rate was 68 beats per minute. Baseline blood pressure is 131/58 and remained the same during stress. At the end of recovery, the blood pressure is 117/66. Blood pressure and heart rate were appropriate for stress. There were no significant symptoms noted during stress. There were no arrhythmias noted during stress. EKG portion of stress test is negative for myocardial ischemia. Nuclear images were obtained with a rest dose of 10.02 mCi technetium-99 sestamibi, and a stress dose of 34.6 mCi technetium 99 sestamibi. Nuclear images reveal a large area of fixed perfusion defect involving the inferior wall suggestive of myocardial infarction. There is also a moderate-sized area of fixed perfusion defect involving the apical wall, also suggestive of myocardial infarction. There is no evidence of myocardial ischemia. Left ventricular ejection fraction is 17%. EDV is 164 mL, ESV is 137 mL. The left ventricle is severely dilated. Gated motion images shows severe global hypokinesis of the left ventricle with inferior akinesis. TID is 1.12. There is no diaphragmatic attenuation artifact. IMPRESSION: 1. There is a large area of fixed perfusion defect involving the inferior wall suggestive of myocardial infarction. 2. There is a moderate-sized area of fixed perfusion defect involving the apical wall, also suggestive of myocardial infarction. 3. Left ventricular ejection fraction is 17%. 4. The left ventricular is severely dilated. 5. Apical akinesis is noted. 6. Inferior akinesis is noted. 7. Severe global hypokinesis is noted. 8. This is an abnormal study. [place] STREETER D.O. DR: KA/FER TID: [id number] RECEIPT: [id number]
== END | disposition home or self-care (01) ==
LOC: RAD 09:35
PROVIDERS: ATTEND Nurse Practitioner Acute Care
DX: I51.7 Cardiomegaly (principal); R94.31 Abnormal electrocardiogram [ECG] [EKG]; I20.8 Other forms of angina pectoris; R29.898 Other symptoms and signs involving the musculoskeletal system
CPT/HCPCS: 78452; 93017; J2785; A9500

== ENCOUNTER → 2021-10-30 | Outpatient (CLI) | payer MEDICARE, OTHER ==
[2021-10-30 14:29] LABS: BASOPHIL % 0.2 % (0.0-0.2); EOSINOPHIL # 0.2 10^3/uL (0.0-0.2); EOSINOPHIL % 4.3 % (0.0-5.0); LYMPHOCYTES # 1.11 10^3/uL1 (1.0-4.8); LYMPHOCYTES % 19.8 % (24.0-44.0); MEAN CORP HGB 33.5 pg (26-34); MONOCYTES # 0.6 10^3/uL (0.3-0.8); NEUTROPHIL # 3.6 10^3/uL (1.8-7.7); NEUTROPHILS % 64.3 % (41.0-85.0); PLATELET COUNT 155 10^3/uL (150-400)
[2021-10-30 14:33] LABS: CARBON DIOXIDE 30.9 mmol/L (20.0-32)
== END | disposition home or self-care (01) ==
LOC: LAB 14:04
PROVIDERS: ATTEND Internal Medicine Cardiovascular Disease
DX: I10 Essential (primary) hypertension (principal)
CPT/HCPCS: 36415; 80048; 85025